=== PATIENT | female | born 1965 | race Caucasian/White ===

== ENCOUNTER → 2016-05-26 | Outpatient (CLI) | payer BC ==
[~2016-05-26] MED LIST: ADVIL PM LIQUI1 EACH PO; ATORVASTATIN CA10 MG PO; BACLOFEN20 M1 PO; BENAZEPRIL HCL10 M2 PO; BENAZEPRIL-HCTZ1 T18 PO; BENICAR HCT 40-1 TAB PO; BUPROPION HCL150 M1 PO; BUPROPION HCL150 M3 PO; DILAUDID PO; DOK100 MG PO; DULOXETINE HCL60 MG PO; DURAGESIC TOP; ENJUVIA0.45 MG PO; FISH OIL 1,0001 CAP PO; FISH OIL 1,0001 EAC1 PO; FISH OIL300 MG PO; KCL PO; MELATONIN3 M4 PO; METHADONE PO; METHADOSE5 MG PO; MIRALAX17 GM PO; MOBIC PO; MORPHINE SULFAT15 M3 PO; MOVANTIK25 MG PO; MS CONTIN PO; MULTIPLE VITAMI1 T10 PO; ONE DAILY WOME1 EAC1 PO; OXYCODONE HCL10 MG PO; OXYCONTIN30 MG PO; PERCOCET7.5 PO; PREMARIN0.45 MG PO; PREMARIN1.25 MG PO; PREMPRO 0.45-11 EACH PO; RASPBERRY KETO100 MG PO; REQUIP0.25 MG PO; RESTFUL LEGS; SKELAXIN PO; STOOL SOFTENER250 MG PO; VITAMIN D50000 UNIT PO; ZANAFLEX PO; ZOLOFT PO
--- NOTE | ~2016-05-26 | EKG ---
PATIENT: LILLIE PALM UNIT #: [id number] Ventricular Rate: 83 BPM Atrial Rate: 83 BPM P-R Interval: 144 ms QRS Duration: 72 ms Q-T Interval: 358 ms QTC Calculation(Bezet): 420 ms P [place]: 50 degrees Calculated R [place]: 12 degrees Calculated T [place]: 45 degrees Diagnosis Line: Normal sinus rhythm Diagnosis Line: Inferior infarct (cited on or before 11-SEP-2015) Diagnosis Line: Cannot rule out Anterior infarct , age Diagnosis Line: undetermined Diagnosis Line: Abnormal ECG Diagnosis Line: When compared with ECG of 11-SEP-2015 04:40, Diagnosis Line: QT has shortened Diagnosis Line: Confirmed by ADRIANA RODRIGUEZ MD ([id number]) on Diagnosis Line: 05/27/2016 11:23:53 AM INTERPRETING MD: MICHAEL ROD
[2016-05-26 12:07] LABS: BASOPHIL% 0.3 % (0-2.5); EOSINOPHIL# 0.1 X10e3 (0-0.7); HEMATOCRIT 42.5 % (35.0-45.0); HEMOGLOBIN 14.3 gm/dL (12.0-16.0); LYMPHOCYTE# 2.3 X10e3 (1.0-3.5); LYMPHOCYTE% 32.8 % (17.0-45.0); MEAN CELL VOLUME 92.1 FL (83-96); MEAN CORPUSCULAR HEMOGLOBIN 30.9 PG (28-34); MEAN CORPUSCULAR HGB CONC 33.6 g/dL (30-36); MEAN PLATELET VOLUME 7.6 FL (6.5-11.5); MONOCYTE# 0.4 X10e3 (0-1.0); MONOCYTE% 5.9 % (3.0-12.0); NEUTROPHIL# 4.1 X10e3 (1.5-7.1); PLATELET COUNT 264 X10e3 (140-420); RED BLOOD COUNT 4.62 X10e (3.90-5.30); RED CELL DISTRIBUTION WIDTH 13.6 % (11.0-15.5)
[2016-05-26 12:09] LABS: URINE APPEARANCE CLOUDY; URINE BILIRUBIN NEG (NEG); URINE BLOOD NEG (NEG); URINE COLOR YELLOW; URINE GLUCOSE NEG (NEG); URINE KETONE NEG (NEG); URINE LEUKOCYTE ESTERASE NEG (NEG); URINE NITRATE NEG (NEG); URINE PH 6.5 (5-8); URINE PROTEIN NEG (NEG); URINE SPECIFIC GRAVITY 1.016 (1.003-1.035); URINE UROBILINOGEN 0.2 MG/DL (NEG)
[2016-05-26 12:10] LABS: DIFF IND NO
[2016-05-26 12:15] LABS: URINE SOURCE CLEAN CATCH
[2016-05-26 12:27] LABS: INR 0.9; PARTIAL THROMBOPLASTIN TIME 24.7 SECONDS (23.5-31.3); PROTHROMBIN TIME (PATIENT) 9.8 SECONDS (9.6-11.5)
[2016-05-26 12:30] LABS: BLOOD UREA NITROGEN 19 mg/dL (9-23); BUN/CREATININE RATIO 27.14; CALCIUM SERUM 9.9 mg/dL (8.4-10.2); CARBON DIOXIDE 30 mmol/L (22-31); CHLORIDE 102 mmol/L (100-111); CREATININE SERUM 0.7 mg/dL (0.6-1.4); GLOM FILT RATE Estimated ABOVE60 mL/min (>60); GLUCOSE FASTING 64 mg/dL (70-110); SODIUM 143 mmol/L (135-145)
== END | disposition home or self-care (01) ==
LOC: CAMB 11:07
PROVIDERS: Anesthesiology
DX: Z01.818 Encounter for other preprocedural examination (principal); M51.26 Other intervertebral disc displacement, lumbar region; M51.36 Other intervertebral disc degeneration, lumbar region; R94.31 Abnormal electrocardiogram [ECG] [EKG]
CPT/HCPCS: 36415; 80048; 81003; 85025; 85610; 85730; 93005

== ENCOUNTER → 2016-06-02 | Day surgery (SDC) | payer BC, MEDICARE ==
--- NOTE | ~2016-06-02 | OR ---
Unit #: [id number] #: [id number] Patient: LILLIE PALM [id number] [address] [place], [place] [address] [id number] O MR#: [id number] NAME: LILLIE PALM ROOM: Date of Procedure: 06/02/2016 Admission Date: 06/02/2016 Surgeon: Sebastian Herrera M.D. : 1965 Attending Physician: Sebastian Herrera M.D. Referring Physician: Sebastian Herrera M.D. Primary Care Physician: Jamarcus Han A.P.R.N. OPERATIVE REPORT SERVICES PROVIDED Intrathecal pump and intrathecal catheter explant using fluoroscopic guidance. INDICATIONS FOR PROCEDURE Ms. Palm has been doing relatively well with intrathecal opioid delivery in the management of chronic and intractable pain secondary to multilevel degenerative disk disease, lumbar spondylosis, and facet arthropathy. She experienced withdrawal symptoms, and in 08/2015, when her pump was interrogated, she had 0 mL of medication in the 40 mL SynchroMed II intrathecal pump and the expected volume was 20 mL. The patient was admitted for monitoring and the pump was filled with preservative-free normal saline at the lowest rate with the plan to replace the intrathecal pump. The intrathecal pump was subsequently replaced with a 20 mL SynchroMed II pump in 10/2015. The patient was stable on the new pump until 12/2015, when she started to experience withdrawal symptoms once again. At that time, the actual volume in the pump was 2 mL when the expected volume was 17.4 mL. Since the issue with over infusion record, it was decided to replace the opioids with preservative-free normal saline and run the infusion at a low rate and plan for explantation of the intrathecal pump and catheter. The patient is aware that the two instances of over infusion are extremely rare, especially happening to the same patient. She wishes to proceed with the pump explant and catheter explant today. The risks and benefits of the procedure were discussed with the patient and her in detail including but not limited to infection, bleeding, meningitis, nerve damage, paralysis, spinal headaches, persistent or worsening pain, risk of seroma in the lumbar wound, which may require re-exploration and closure, risk of leaving the catheter in the flank, since the catheter is a silicon catheter and can potentially rupture when pulled through the flank for explantation. Should this happen, the catheter is usually left in the flank since it is a life long catheter, and the risks of trying to remove the catheter completely would involve additional incisions and searching for the catheter in the flank, which would put the patient at more risk, especially since she has extra fatty tissue around the flank. The patient and her wish to proceed. DESCRIPTION OF PROCEDURE The patient was taken to the operating room and placed in a left lateral decubitus position. Sterile prep and drape was carried out with DuraPrep. 3 g of Kefzol was administered intravenously for antibiotic prophylaxis. General anesthesia was instituted. Unit #: [id number] #: [id number] Patient: LILLIE PALM Local anesthesia was infiltrated with 5 mL of 0.25% bupivacaine with epinephrine at the lumbar scar and the right abdominal wound scar. Dissection was carried down to the lumbar site through the lumbodorsal fascia and the anchor. The anchor was detached from the lumbodorsal fascia. Around five 2-0 silk pursestring sutures were taken around the catheter and the catheter was now removed from the intrathecal location with the tip intact. All the purse string sutures were now tightened to ensure that there would be no CSF leak. A Valsalva maneuver was performed as well and there was no CSF leak noted. A couple of extra sutures were taken around this site to ensure adequate closure. The right abdominal incision was now carried down to the pump pocket and the pump was delivered out of the pocket. There was extensive scarring noted around the pump pocket and most of the scar tissue was removed. The catheter was now freed completely in the intraabdominal location. Silk ties were taken around the catheter and the catheter was cut and the sutureless connector and the intrathecal pump were removed from the abdomen. Attention was now made to try to explant the flank portion of the intrathecal catheter, which in this patient with obesity and presence of scar tissue would make it difficult. On trying to pull the catheter from both ends to remove it resulted in the catheter rupturing in the flank after significant stretching of the catheter. Around 73 cm of the catheter segment were removed in total with the initial total length of the catheter being 89 cm. Since a significant portion of the intrathecal portion of the catheter and the abdominal portion of catheter were removed, only around 16 cm of the intrathecal catheter was left in the flank. In view of the risks of additional incisions and resulting infection, and the presence of significant adipose tissue, as discussed with the patient and her , a small portion of the catheter, which is meant to stay lifelong, without any complications, was left in the flank. The abdominal wound was now copiously irrigated with bacitracin. Care was taken to excise any remaining scar tissue outpocket remnants as much as possible. This wound was now closed with 2-0 Vicryl sutures and skin bartolo. The lumbar wound was copiously irrigated with bacitracin and once again on checking the wound, there appeared to be no CSF leak. The lumbar wound was now closed with 2-0 Vicryl sutures and skin bartolo. The patient tolerated the procedure well and was taken to the recovery room in stable condition. She will return to the clinic in a week for staple removal. Dictated by... Jerri Martinez/brennan TD: 06/03/2016 17:22 JOB #: [id number] Unit #: [id number] #: [id number] Patient: LILLIE PALM OPERATIVE REPORT Page 1 of 1 X Sebastian Herrera MD PROCEDURE OPERATIVE NOTE
--- NOTE | ~2016-06-02 | CR63 ---
[facility] A Service of [facility] RADIOLOGY TEXT RESULTS PATIENT: LILLIE PALM LOCATION: [facility] : [birth year] UNIT #: [id number] AGE: [address]: Sebastian Herrera MD SEX: F ORDER DR: [id number] [facility] [address] [place], [place] [address] [id number] O MR#: [id number] Acc #: [id number] NAME: LILLIE PALM : 1965 SEX: F STUDY DATE/TIME: 06/02/2016 8:35 UNIT: [facility] ROOM: STUDY DESCRIPTION: CR Chest 2 View Attending Physician: Sebastian Herrera M.D. Referring Physician: Sebastian Herrera M.D. Ordering Physician: Sebastian Herrera M.D. Primary Care Physician: Jamarcus Han A.P.R.N. MEDICAL IMAGING REPORT This report is preliminary unless electronic signature is present EXAM Chest PA and lateral, dated 06/02/2016. COMPARISON 09/27/2014. HISTORY History supplied is preop pain pump removal. TECHNIQUE PA and lateral views are obtained. FINDINGS Cardiovascular configuration is normal and the lungs are clear. CONCLUSION Normal chest. Dictated by... Johan Puentes M.D. THIS IS AN ELECTRONICALLY VERIFIED REPORT Johan Puentes M.D. at 06/03/2016 3:10 PM [facility]/jaden TD: 06/02/2016 13:40 JOB #: [id number] MEDICAL IMAGING REPORT Page 1 of 1 COPY
== END | disposition home or self-care (01) ==
LOC: CSUR 07:38
DX: T85.695A Other mechanical complication of other nervous system device, implant or graft, initial encounter (principal); E66.9 Obesity, unspecified; E16.2 Hypoglycemia, unspecified; K21.9 Gastro-esophageal reflux disease without esophagitis; Z68.38 Body mass index [BMI] 38.0-38.9, adult; Z88.8 Allergy status to other drugs, medicaments and biological substances; Z79.899 Other long term (current) drug therapy; Z90.49 Acquired absence of other specified parts of digestive tract; Z90.710 Acquired absence of both cervix and uterus; Z90.89 Acquired absence of other organs; Z98.890 Other specified postprocedural states
CPT/HCPCS: 71020; 82947; 88300; J0131; J0690; J1170; J1200; J1885; J2250; J2370; J2405; J3010